=== PATIENT | female | born 1985 | race Two or more races ===

== ENCOUNTER 2017-09-26 20:44 | Emergency (ER) | payer SELFPAY ==
[~2017-09-26] VITALS: Ht 132.1 cm; Wt 44.5 kg
[2017-09-26] MEDS ORDERED: KETOROLAC 30 MG/ML INJ. IV ONE (21:30)
--- NOTE | 2017-09-26 21:41 | PHYS DOC ---
Past Medical History Past Medical History: No Pertinent History Past Surgical History: No Surgical History Alcohol Use: None Drug Use: None Adult General Chief Complaint Chief Complaint: ABDOMINAL PAIN HPI HPI 32-year-old female with no significant past abdominal history now presents the emergency department complaining of left-sided abdominal pain with nausea and left flank pain for the last 2 days. She denies fevers chills sweats or shaking chills. Patient feels like she may be constipated as she has not had a good bowel movement in the last couple days. No black or bloody stool. No history of chronic abdominal problems. Patient denies being . Normal bladder habits. Pain is mildly worse with movement. She reports having had a kidney infection in the distant past. Review of Systems Review of Systems Constitutional: Denies fever or chills [] Eyes: Denies change in visual acuity, redness, or eye pain [] HENT: Denies nasal congestion or sore throat [] Respiratory: Denies cough or shortness of breath [] Cardiovascular: No additional information not addressed in HPI [] GI: Denies abdominal pain, nausea, vomiting, bloody stools or diarrhea [] : Denies dysuria or hematuria [] Musculoskeletal: Denies back pain or joint pain [] Integument: Denies rash or skin lesions [] Neurologic: Denies headache, focal weakness or sensory changes [] Endocrine: Denies polyuria or polydipsia [] All other systems were reviewed and found to be within normal limits, except as documented in this note. Current Medications Current Medications Current Medications Medications (Trade) Dose Ordered Sig/Alvaro Start Time Stop Time Status Last Admin Dose Admin Info (Do NOT chart on this entry -- for MONITORING) 1 each PRN DAILY PRN 09/26/17 22:00 09/28/17 21:59 Iohexol (Omnipaque 300 Mg/ml) 75 ml 1X ONCE 09/26/17 22:00 09/26/17 22:01 DC 09/26/17 22:24 75 ML Ketorolac Tromethamine (Toradol) 30 mg 1X ONCE 09/26/17 21:30 09/26/17 21:47 DC 09/26/17 21:53 30 MG Allergies Allergies Allergies Coded Allergies Type Severity Reaction Last Updated Verified acetaminophen Allergy Intermediate hives, itching 09/26/17 Yes Physical Exam Physical Exam Alert well-appearing 32-year-old female in no acute distress alert communicative cooperative and appropriate. Clear lungs regular and rhythm. Moist mucous membranes supple neck. No tachycardia. Mild left CVA tenderness. Minimal left upper quadrant abdominal tenderness without guarding or rebound no mass or megaly. Nondistended abdomen normal bowel sounds no skin changes. Normal extremities Constitutional: Well developed, well nourished, no acute distress, non-toxic appearance. [] HENT: Normocephalic, atraumatic, bilateral external ears normal, oropharynx moist, no oral exudates, nose normal. [] Eyes: PERRLA, EOMI, conjunctiva normal, no discharge. [] Neck: Normal range of motion, no tenderness, supple, no stridor. [] Cardiovascular:Heart rate regular rhythm, no murmur [] Lungs & Thorax: Bilateral breath sounds clear to auscultation [] Abdomen: Bowel sounds normal, soft, as above, no masses, no pulsatile masses. [ ] Skin: Warm, dry, no erythema, no rash. [] Back: No tenderness, no CVA tenderness. [] Extremities: No tenderness, no cyanosis, no clubbing, ROM intact, no edema. [] Neurologic: Alert and oriented X 3, normal motor function, normal sensory function, no focal deficits noted. [] Psychologic: Affect normal, judgement normal, mood normal. [] Current Patient Data Vital Signs Vital Signs Date Time Temp Pulse Resp B/P (MAP) Pulse Ox O2 Delivery O2 Flow Rate FiO2 09/26/17 22:48 76 16 96/62 (73) 99 Room Air 09/26/17 20:50 98.2 98.2 Lab Values Laboratory Tests Test 09/26/17 20:57 09/26/17 21:30 09/26/17 21:43 POC Urine HCG, Qualitative Hcg negative (Negative) Urine Collection Type Unknown Urine Color Yellow Urine Clarity Clear Urine pH 6.0 Urine Specific [place] <=1.005 Urine Protein Negative mg/dL (NEG-TRACE) Urine Glucose (UA) Negative mg/dL (NEG) Urine Ketones (Stick) Negative mg/dL (NEG) Urine Blood Negative (NEG) Urine Nitrite Negative (NEG) Urine Bilirubin Negative (NEG) Urine Urobilinogen Dipstick 0.2 mg/dL (0.2 mg/dL) Urine Leukocyte Esterase Negative (NEG) Urine RBC 0 /HPF (0-2) Urine WBC 0 /HPF (0-4) Urine Squamous Epithelial Cells Occ /LPF Urine Bacteria 0 /HPF (0-FEW) White Blood Count 6.5 x10^3/uL (4.0-11.0) Red Blood Count 4.51 x10^6/uL (3.50-5.40) Hemoglobin 13.8 g/dL (12.0-15.5) Hematocrit 41.1 % (36.0-47.0) Mean Corpuscular Volume 91 fL (79-100) Mean Corpuscular Hemoglobin 31 pg (25-35) Mean Corpuscular Hemoglobin Concent 34 g/dL (31-37) Red Cell Distribution Width 12.7 % (11.5-14.5) Platelet Count 258 x10^3/uL (140-400) Neutrophils (%) (Auto) 47 % (31-73) Lymphocytes (%) (Auto) 35 % (24-48) Monocytes (%) (Auto) 11 % (0-9) H Eosinophils (%) (Auto) 6 % (0-3) H Basophils (%) (Auto) 1 % (0-3) Neutrophils # (Auto) 3.1 x10^3uL (1.8-7.7) Lymphocytes # (Auto) 2.3 x10^3/uL (1.0-4.8) Monocytes # (Auto) 0.7 x10^3/uL (0.0-1.1) Eosinophils # (Auto) 0.4 x10^3/uL (0.0-0.7) Basophils # (Auto) 0.0 x10^3/uL (0.0-0.2) Sodium Level 139 mmol/L (136-145) Potassium Level 3.8 mmol/L (3.5-5.1) Chloride Level 103 mmol/L (98-107) Carbon Dioxide Level 27 mmol/L (21-32) Anion Gap 9 (6-14) Blood Urea Nitrogen 7 mg/dL (7-20) Creatinine 0.8 mg/dL (0.6-1.0) Estimated GFR (Cockcroft-Gault) 84.2 BUN/Creatinine Ratio 9 (6-20) Glucose Level 108 mg/dL (70-99) H Calcium Level 8.5 mg/dL (8.5-10.1) Total Bilirubin 0.2 mg/dL (0.2-1.0) Aspartate Amino Transferase (AST) 22 U/L (15-37) Alanine Aminotransferase (ALT) 27 U/L (14-59) Alkaline Phosphatase 62 U/L (46-116) Total Protein 7.1 g/dL (6.4-8.2) Albumin 3.5 g/dL (3.4-5.0) Albumin/Globulin Ratio 1.0 (1.0-1.7) Lipase 149 U/L (73-393) Laboratory Tests 09/26/17 21:43 Laboratory Tests 09/26/17 21:43 EKG EKG [] Radiology/Procedures Radiology/Procedures [] Course & Med Decision Making Course & Med Decision Making Pertinent Labs and Imaging studies reviewed. (See chart for details) Signs and symptoms consistent with possible pyelonephritis versus GI etiology for pain and full workup pending putting labs UA urine hCG and CT. Toradol administered. Patient appears well-hydrated with unremarkable vital signs. Follow clinically and correlate with laboratory and radiological results. She is workup completely benign. Incidental finding of distended stomach however is not clinically relevant as patient has a nondistended epigastrium with no tenderness and no nausea or vomiting. Additional incidental finding of complex right ovarian cyst. Patient stable. No further workup or treatment indicated. Patient given copy of CT result to discuss with her primary care doctor and arrange further follow-up and treatment as needed. She agrees with outpatient follow-up and strict return precautions given [] Alineon Disclaimer Dragon Disclaimer This electronic medical record was generated, in whole or in part, using a voice recognition dictation system. Departure Departure Impression: Primary Impression: Left flank pain Additional Impressions: Abdominal pain Complex cyst of right ovary Gastric distention Disposition: HOME, SELF-CARE Condition: IMPROVED Referrals: NO PCP (PCP) Patient Instructions: Abdominal Pain (Nonspecific), Ovarian Cyst Additional Instructions: It is not clear what was causing her abdominal pain this evening. You feel that you're constipated CU may find it helpful to eat a high-fiber diet. Use over-the -counter MiraLAX as needed and consider homeopathic remedies such as prune juice. You have an incidental finding of a complex right ovarian cyst. Follow- up with your doctor for reevaluation and further workup and treatment as needed. See your doctor tomorrow and return immediately for new severe or worsening symptoms Problem Qualifiers ANNE GOODMAN MD Sep 26, 2017 21:40
[2017-09-26 21:43] LABS: BILIRUBIN,URINE NEGATIVE (NEG); GLUCOSE,URINE NEGATIVE (NEG); NITRITE,URINE NEGATIVE (NEG); PROTEIN,URINE NEGATIVE (NEG-TRACE); UROBILINOGEN,URINE 0.2 mg/dL (0.2 mg/dL)
[2017-09-26 21:49] LABS: BACTERIA,URINE 0 /HPF (0-FEW); RBC,URINE 0 /HPF (0-2); SQUAMOUS EPITHELIAL CELL,UR OCC /LPF; WBC,URINE 0 /HPF (0-4)
[2017-09-26 21:49] LABS: BASO % 1 % (0-3); EOS % 6 % (0-3); HEMATOCRIT 41.1 % (36.0-47.0); HEMOGLOBIN 13.8 g/dL (12.0-15.5); LYMPH # 2.3 x10^3/uL (1.0-4.8); LYMPH % 35 % (24-48); MEAN CORPUSCULAR HEMOGLOBIN 31 pg (25-35); MEAN CORPUSCULAR HGB CONC 34 g/dL (31-37); MEAN CORPUSCULAR VOLUME 91 fL (79-100); MONO % 11 % (0-9); NEUT % 47 % (31-73); PLATELET COUNT 258 x10^3/uL (140-400); RED BLOOD COUNT 4.51 x10^6/uL (3.50-5.40); RED CELL DISTRIBUTION WIDTH 12.7 % (11.5-14.5); WHITE BLOOD COUNT 6.5 x10^3/uL (4.0-11.0)
[2017-09-26] MEDS ORDERED: IOHEXOL 300 MG/ML 100ML VIAL. IV ONE (22:00)
[2017-09-26] MEDS ORDERED: CONTRAST GIVEN MC PRN (22:00)
[2017-09-26 22:05] LABS: CALCIUM 8.5 mg/dL (8.5-10.1); CREATININE 0.8 mg/dL (0.6-1.0); GFR 84.2; POTASSIUM 3.8 mmol/L (3.5-5.1)
[2017-09-26 22:10] LABS: ALBUMIN 3.5 g/dL (3.4-5.0); TOTAL BILIRUBIN 0.2 mg/dL (0.2-1.0); TOTAL PROTEIN 7.1 g/dL (6.4-8.2)
--- NOTE | 2017-09-26 22:38 | RAD ---
CT ABD PELV W/ IV CONTRST ONLY dated 09/26/2017 9:23 PM Indication: Left lower quadrant pain, left flank painllq and left flank pain, constipation x 3 days, [id number] 75ml, no priors. Comparison: No comparison is available. Technique: Contiguous axial imaging of the abdomen and pelvis performed after the administration of 75 cc Omnipaque 300. One or more of the following individualized dose reduction techniques were utilized for this examination: 1. Automated exposure control 2. Adjustment of the mA and/or kV according to patient size 3. Use of iterative reconstruction technique Findings: Limited images of lung bases are clear. Heart size within normal limits. No pleural or pericardial effusion. Liver, spleen, pancreas, adrenal glands, gallbladder and kidneys are unremarkable. Tiny low-density focus at the posterior midpole right kidney likely represents cyst. No hydronephrosis. The stomach is dilated and filled with debris. GI tract is otherwise normal in caliber and contour. No focal bowel wall thickening. No inflammatory stranding in the mesentery. The appendix is normal in caliber. No ascites or lymphadenopathy. Images of pelvis show mildly distended urinary bladder. Uterus and adnexa are unremarkable. Possible complex right ovarian cyst measuring 1.8 cm in size. Trace amount of free pelvic fluid. No pelvic lymphadenopathy. Bone windows show no acute findings. Suspect unilateral pars defect at L5-S1 on the left. IMPRESSION: 1. No acute abnormality of abdomen or pelvis. Normal appendix. 2. Small complex right ovarian cyst with trace amount of free pelvic fluid. 3. Dilated debris-filled stomach. Electronically signed by: Sourav Mares MD (09/26/2017 10:35 PM) [facility]
[2017-09-27] VITALS: BP 92/51
== END 2017-09-27 00:26 | disposition home or self-care (01) ==
LOC: ER 20:44
DX: N83.201 Unspecified ovarian cyst, right side (principal); R14.0 Abdominal distension (gaseous); Z88.6 Allergy status to analgesic agent
CPT/HCPCS: 36415; 74177; 80053; 81001; 81025; 83690; 85025; 96374; 99285; J1885; Q9967

== ENCOUNTER 2019-06-07 14:15 | Emergency (ER) | payer SELFPAY ==
[~2019-06-07] VITALS: Ht 160 cm; Wt 47.2 kg
[2019-06-07 14:20] VITALS: BP 108/58
[2019-06-07 14:39] LABS: BILIRUBIN,URINE NEGATIVE (NEG); CLARITY,URINE CLOUDY; COLOR,URINE YELLOW; NITRITE,URINE NEGATIVE (NEG); PH,URINE 8.5; PROTEIN,URINE NEGATIVE (NEG-TRACE); UROBILINOGEN,URINE 0.2 mg/dL (0.2 mg/dL)
[2019-06-07 14:44] LABS: AMORPHOUS SEDIMENT,UR PRESENT /HPF; BACTERIA,URINE 0 /HPF (0-FEW); RBC,URINE 0 /HPF (0-2); SQUAMOUS EPITHELIAL CELL,UR MOD /LPF; WBC,URINE 0 /HPF (0-4)
--- NOTE | 2019-06-07 14:45 | PHYS DOC ---
Past Medical History Past Medical History: No Pertinent History Past Surgical History: No Surgical History Alcohol Use: None Drug Use: None Adult General Chief Complaint Chief Complaint: VAGINAL BLEEDING [facility] HPI Patient is a 33 year old female, accompanied by her family, with complaints of some dark brown vaginal discharge at approximately 12 AM and pelvic pain. Patient states she is currently with a last menstrual period of March 31, 2019. She is 4, para 2, A1. Her surgical history includes 3 previous C-sections; she denies any medical history. Patient currently rates her pain a 5 out of 10 on the pain scale, there are no alleviating, or exacerbating factors. ROS Patient denies any blood clots or heavy bleeding. She reports she has had some pelvic cramping and low back pain. She states that she has burning with urination, she denies any hematuria, incontinence, or foul-smelling urine. Patient reports having chills, and fatigue. She denies any fever, nausea, vomiting, diarrhea, shortness of breath, or cough. All other ROS is neg unless otherwise noted in HPI. Review of Systems Review of Systems SEE ABOVE Current Medications Current Medications Current Medications Medications (Trade) Dose Ordered Sig/Alvaro Start Time Stop Time Status Last Admin Dose Admin Lidocaine HCl (Xylocaine-Mpf 1% 2ml Vial) 4 ml 1X ONCE 06/07/19 18:00 06/07/19 18:01 UNV Allergies Allergies Allergies Coded Allergies Type Severity Reaction Last Updated Verified acetaminophen Allergy Intermediate hives, itching 09/26/17 Yes Physical Exam Physical Exam SEE ABOVE Constitutional: Well developed, well nourished, no acute distress, non-toxic appearance. [] HENT: Normocephalic, atraumatic, bilateral external ears normal, nose normal. [] Eyes: PERRLA, conjunctiva normal, no discharge. [] Neck: Normal range of motion, no stridor. [] Cardiovascular:Heart rate regular rhythm, no murmur [] Lungs & Thorax: Bilateral breath sounds clear to auscultation [] Abdomen: Bowel sounds normal, soft, suprapubic tenderness, no guarding, no rebound tenderness, no masses, no pulsatile masses. [] Skin: Warm, dry, no erythema, no rash. [] Back: No CVA tenderness. [] Extremities: No cyanosis, ROM intact Neurologic: Alert and oriented X 3, no focal deficits noted. [] Psychologic: Affect normal, judgement normal, mood normal. [] Current Patient Data Vital Signs Vital Signs Date Time Temp Pulse Resp B/P (MAP) Pulse Ox O2 Delivery O2 Flow Rate FiO2 06/07/19 14:20 98.1 68 16 108/58 (75) 99 Room Air 98.1 Lab Values Laboratory Tests Test 06/07/19 14:20 06/07/19 15:15 Urine Collection Type Unknown Urine Color Yellow Urine Clarity Cloudy Urine pH 8.5 Urine Specific [place] 1.015 Urine Protein Negative mg/dL (NEG-TRACE) Urine Glucose (UA) Negative mg/dL (NEG) Urine Ketones (Stick) Negative mg/dL (NEG) Urine Blood Negative (NEG) Urine Nitrite Negative (NEG) Urine Bilirubin Negative (NEG) Urine Urobilinogen Dipstick 0.2 mg/dL (0.2 mg/dL) Urine Leukocyte Esterase Negative (NEG) Urine RBC 0 /HPF (0-2) Urine WBC 0 /HPF (0-4) Urine Squamous Epithelial Cells Mod /LPF Urine Amorphous Sediment Present /HPF Urine Bacteria 0 /HPF (0-FEW) White Blood Count 8.0 x10^3/uL (4.0-11.0) Red Blood Count 4.22 x10^6/uL (3.50-5.40) Hemoglobin 13.1 g/dL (12.0-15.5) Hematocrit 38.0 % (36.0-47.0) Mean Corpuscular Volume 90 fL (79-100) Mean Corpuscular Hemoglobin 31 pg (25-35) Mean Corpuscular Hemoglobin Concent 34 g/dL (31-37) Red Cell Distribution Width 12.8 % (11.5-14.5) Platelet Count 287 x10^3/uL (140-400) Neutrophils (%) (Auto) 61 % (31-73) Lymphocytes (%) (Auto) 28 % (24-48) Monocytes (%) (Auto) 8 % (0-9) Eosinophils (%) (Auto) 2 % (0-3) Basophils (%) (Auto) 1 % (0-3) Neutrophils # (Auto) 4.9 x10^3/uL (1.8-7.7) Lymphocytes # (Auto) 2.3 x10^3/uL (1.0-4.8) Monocytes # (Auto) 0.6 x10^3/uL (0.0-1.1) Eosinophils # (Auto) 0.2 x10^3/uL (0.0-0.7) Basophils # (Auto) 0.1 x10^3/uL (0.0-0.2) Maternal Serum HCG Beta Subunit 9580 mIU/mL (0-5) H Laboratory Tests 06/07/19 15:15 EKG EKG [] Radiology/Procedures Radiology/Procedures PROCEDURE: OB <14 WKS W/TV Obstetrical ultrasound less than 14 weeks transabdominal and transvaginal imaging. HISTORY: Vaginal bleeding, first trimester Transabdominal ultrasound was performed. The uterus is retroflexed. There is a gestational sac in the fundus of the uterus. Left ovary was normal in appearance. Right ovary was normal in appearance. Transvaginal imaging was performed for further evaluation. There is a gestational sac with a mean gestational sac size of 1.7 cm corresponding to 6 weeks 4 days gestational age. Cervix was 2.4 cm in length. A normal yolk sac was not identified. There is a small amount of tissue within the gestational sac without a heartbeat. Gestational sac is mildly irregular. There is a concern about demise. A follow-up study would be recommended. IMPRESSION: 1. Irregular gestational sac with a mean sac size of 1.6 cm corresponding to 6 weeks 4 days gestational age. 2. A normal yolk sac and pole were not identified, there is a small amount of tissue within the gestational sac without a heartbeat. 3. The pattern is concerning for demise. Follow-up may be of benefit or correlation with hCGs.[] Course & Med Decision Making Course & Med Decision Making Pertinent Labs and Imaging studies reviewed. (See chart for details) dx: Threatened miscarriage in early , vaginal bleeding in early CBC unremarkable, UA unremarkable, maternal hCG is 9580 blood type is A+ U/S was concerning for an irregular gestational sac corresponding to 6 weeks and 4 days gestational age, however a normal yolk sac and pole were not identified, there was no heartbeat presents which is concerning for demise. 1715- Spoke with Dr. Tinajero will have patient follow-up in office Sunday to repeat beta hCG. Patient verbalized an understanding of home care, medications, follow-up, and return to ED instructions and was in agreement with the plan of care. [] Dragon Disclaimer Dragon Disclaimer This electronic medical record was generated, in whole or in part, using a voice recognition dictation system. Departure Departure Impression: Primary Impression: Threatened miscarriage in early Additional Impression: Vaginal bleeding affecting early Disposition: HOME, SELF-CARE Condition: STABLE Referrals: ALEX TINAJREO MD Patient Instructions: Threatened Miscarriage, [id number] Additional Instructions: We cannot exclude an ectopic . You MUST Follow up with Dr. Tinajero on Sunday to have your HCG level redrawn today your level was 9580. Return to the ER sooner if your symptoms worsen or you are unable to schedule an appointment with Dr. Tinajero. Problem Qualifiers DANE MADERA MAMMOGRAPHY TECHNICIAN Jun 07, 2019 14:45
[2019-06-07 15:27] LABS: BASO # 0.1 x10^3/uL (0.0-0.2); BASO % 1 % (0-3); EOS # 0.2 x10^3/uL (0.0-0.7); EOS % 2 % (0-3); HEMOGLOBIN 13.1 g/dL (12.0-15.5); LYMPH # 2.3 x10^3/uL (1.0-4.8); LYMPH % 28 % (24-48); MEAN CORPUSCULAR HEMOGLOBIN 31 pg (25-35); MEAN CORPUSCULAR HGB CONC 34 g/dL (31-37); MEAN CORPUSCULAR VOLUME 90 fL (79-100); MONO # 0.6 x10^3/uL (0.0-1.1); MONO % 8 % (0-9); NEUT # 4.9 x10^3/uL (1.8-7.7); NEUT % 61 % (31-73); PLATELET COUNT 287 x10^3/uL (140-400); RED BLOOD COUNT 4.22 x10^6/uL (3.50-5.40); RED CELL DISTRIBUTION WIDTH 12.8 % (11.5-14.5)
[2019-06-07] MEDS ORDERED: LIDOCAINE 1% PF 2 ML VIAL. INJ ONE (18:00)
--- NOTE | 2019-06-07 18:22 | RAD ---
Obstetrical ultrasound less than 14 weeks transabdominal and transvaginal imaging. HISTORY: Vaginal bleeding, first trimester Transabdominal ultrasound was performed. The uterus is retroflexed. There is a gestational sac in the fundus of the uterus. Left ovary was normal in appearance. Right ovary was normal in appearance. Transvaginal imaging was performed for further evaluation. There is a gestational sac with a mean gestational sac size of 1.7 cm corresponding to 6 weeks 4 days gestational age. Cervix was 2.4 cm in length. A normal yolk sac was not identified. There is a small amount of tissue within the gestational sac without a heartbeat. Gestational sac is mildly irregular. There is a concern about demise. A follow-up study would be recommended. IMPRESSION: 1. Irregular gestational sac with a mean sac size of 1.6 cm corresponding to 6 weeks 4 days gestational age. 2. A normal yolk sac and pole were not identified, there is a small amount of tissue within the gestational sac without a heartbeat. 3. The pattern is concerning for demise. Follow-up may be of benefit or correlation with hCGs. Electronically signed by: Navid Mcintyre MD (06/07/2019 6:19 PM) [facility]
== END 2019-06-07 19:01 | disposition home or self-care (01) ==
LOC: ER 14:15
DX: O20.0 Threatened abortion (principal); R10.32 Left lower quadrant pain; M54.5 Low back pain; Z3A.01 Less than 8 weeks gestation of pregnancy
CPT/HCPCS: 36415; 76801; 76817; 81001; 81025; 84702; 85025; 86900; 86901; 99285-25

== ENCOUNTER 2019-06-09 15:04 | Emergency (ER) | payer SELFPAY ==
[~2019-06-09] VITALS: Ht 157.5 cm; Wt 47.2 kg
[2019-06-09 17:42] LABS: BASO # 0.1 x10^3/uL (0.0-0.2); BASO % 1 % (0-3); EOS # 0.3 x10^3/uL (0.0-0.7); EOS % 3 % (0-3); HEMATOCRIT 38.9 % (36.0-47.0); HEMOGLOBIN 13.2 g/dL (12.0-15.5); LYMPH # 2.9 x10^3/uL (1.0-4.8); LYMPH % 30 % (24-48); MEAN CORPUSCULAR HEMOGLOBIN 31 pg (25-35); MEAN CORPUSCULAR HGB CONC 34 g/dL (31-37); MEAN CORPUSCULAR VOLUME 91 fL (79-100); MONO # 0.6 x10^3/uL (0.0-1.1); MONO % 6 % (0-9); NEUT # 5.9 x10^3/uL (1.8-7.7); NEUT % 60 % (31-73); PLATELET COUNT 281 x10^3/uL (140-400); RED BLOOD COUNT 4.29 x10^6/uL (3.50-5.40); RED CELL DISTRIBUTION WIDTH 12.7 % (11.5-14.5); WHITE BLOOD COUNT 9.7 x10^3/uL (4.0-11.0)
[2019-06-09 17:44] LABS: BILIRUBIN,URINE NEGATIVE (NEG); CLARITY,URINE CLEAR; COLOR,URINE YELLOW; NITRITE,URINE NEGATIVE (NEG); PROTEIN,URINE NEGATIVE (NEG-TRACE)
[2019-06-09] MEDS ORDERED: IV NORMAL SALINE 1000ML BAG 1,000 ML IV ONE (17:45)
[2019-06-09 17:51] LABS: CALCIUM 8.6 mg/dL (8.5-10.1); CREATININE 0.8 mg/dL (0.6-1.0); GFR 83.7; POTASSIUM 3.7 mmol/L (3.5-5.1)
[2019-06-09 17:58] LABS: ALBUMIN 3.9 g/dL (3.4-5.0); ALBUMIN/GLOBULIN RATIO 1.1 (1.0-1.7); TOTAL BILIRUBIN 0.3 mg/dL (0.2-1.0); TOTAL PROTEIN 7.6 g/dL (6.4-8.2)
[2019-06-09] MEDS ORDERED: MORPHINE SULFATE 10 MG/ML VIAL. IV ONE (18:00)
[2019-06-09 18:02] LABS: BACTERIA,URINE FEW /HPF (0-FEW); SQUAMOUS EPITHELIAL CELL,UR FEW /LPF
--- NOTE | 2019-06-09 18:46 | RAD ---
Exam: Ultrasound OB ultrasound transvaginal Indication: Worsening pain and vaginal bleeding Technique: Real-time grayscale and color Doppler images of the pelvis were obtained by the department ticket scheduler. Transvaginal images were obtained. Comparisons: Ultrasound 06/07/2019 FINDINGS: Uterus is retroverted measuring 8.6 x 6.1 x 4.6 cm. Within the uterus there is a gestational sac and pole measuring 4 mm. No heart rate is identified. Right ovary measures 1.9 x 1.2 x 1.9 cm. Left ovary measures 2.4 x 2.2 x 1.3 cm. IMPRESSION: Redemonstration of gestational sac and pole within the uterus. No heart activity is identified. Differential considerations include failed versus early . Recommend correlation with serial beta hCGs and short-term imaging follow-up in 10-14 days. Electronically signed by: Tyrell Hdez MD (06/09/2019 6:43 PM) [facility]
--- NOTE | 2019-06-09 20:42 | PHYS DOC ---
Past Medical History Past Medical History: No Pertinent History (KEV DONG APRN) Past Surgical History: No Surgical History (KEV DONG APRN) Alcohol Use: None Drug Use: None (KEV DONG APRN) Adult General Chief Complaint Chief Complaint: VAGINAL BLEEDING [facility] HPI Patient is a 33 year old female 4 para 2, 1 who presents to the ED today with vaginal bleeding in . Patient states she is roughly 6 weeks last menstrual cycle being April 08, 2019. She states she started experiencing abdominal pain described as cramping rated at 8 out of 10 mostly on the pelvic region that begun 3 days ago. She states she was seen in the ED and they did an ultrasound which showed demise. She states she was discharged to home. She states the bleeding has increased in intensity. She has used 3 feminine pads today. Patient denies any nausea or vomiting. Denies any fever. Denies any concerns for STDs. [employer] line was used for [place], the daughter also helped interpret. (KEV DONG APRN) Review of Systems Review of Systems Constitutional: Denies fever or chills [] Eyes: Denies change in visual acuity, redness, or eye pain [] HENT: Denies nasal congestion or sore throat [] Respiratory: Denies cough or shortness of breath [] Cardiovascular: No additional information not addressed in [facility] [] GI: Reports vaginal bleeding, abdominal pain in , denies nausea, vomiting, bloody stools or diarrhea [] : Denies dysuria or hematuria [] Musculoskeletal: Denies back pain or joint pain [] Integument: Denies rash or skin lesions [] Neurologic: Denies headache, focal weakness or sensory changes [] All other systems were reviewed and found to be within normal limits, except as documented in this note. (KEV DONG APRN) Current Medications Current Medications Current Medications Medications (Trade) Dose Ordered Sig/Alvaro Start Time Stop Time Status Last Admin Dose Admin Morphine Sulfate (Morphine Sulfate) 5 mg 1X ONCE 06/09/19 18:00 06/09/19 18:01 DC 06/09/19 18:05 5 MG Sodium Chloride 1,000 ml @ 1,000 mls/hr 1X ONCE 06/09/19 17:45 06/09/19 18:44 DC 06/09/19 18:05 1,000 MLS/HR (ANNE PIZANO DO) Allergies Allergies Allergies Coded Allergies Type Severity Reaction Last Updated Verified acetaminophen Allergy Intermediate hives, itching 09/26/17 Yes (ANNE PIZANO DO) Physical Exam Physical Exam Constitutional: Well developed, well nourished, no acute distress, non-toxic appearance. [] HENT: Normocephalic, atraumatic, bilateral external ears normal, oropharynx moist, no oral exudates, nose normal. [] Eyes: PERRLA, EOMI, conjunctiva normal, no discharge. [] Neck: Normal range of motion, no tenderness, supple, no stridor. [] Cardiovascular:Heart rate regular rhythm, no murmur [] Lungs & Thorax: Bilateral breath sounds clear to auscultation [] Abdomen: Bowel sounds normal, soft, no tenderness, no masses, no pulsatile masses. [] Pelvic exam External pelvic appears normal, cervix is visualized, small amount of blood in the cervical os. No CMT, no adnexal tenderness. Skin: Warm, dry, no erythema, no rash. [] Back: No tenderness, no CVA tenderness. [] Extremities: No tenderness, no cyanosis, no clubbing, ROM intact, no edema. [] Neurologic: Alert and oriented X 3, normal motor function, normal sensory function, no focal deficits noted. [] Psychologic: Affect normal, judgement normal, mood normal. [] (KEV DONG APRN) Current Patient Data Vital Signs Vital Signs Date Time Temp Pulse Resp B/P (MAP) Pulse Ox O2 Delivery O2 Flow Rate FiO2 06/09/19 21:00 65 15 101/62 (75) 98 Room Air 06/09/19 16:07 98.5 98.5 (ANNE PIZANO DO) Lab Values Laboratory Tests Test 06/09/19 17:05 06/09/19 17:11 06/09/19 17:30 Urine Collection Type Void Urine Color Yellow Urine Clarity Clear Urine pH 7.0 Urine Specific [place] 1.020 Urine Protein Negative mg/dL (NEG-TRACE) Urine Glucose (UA) Negative mg/dL (NEG) Urine Ketones (Stick) Negative mg/dL (NEG) Urine Blood Large (NEG) Urine Nitrite Negative (NEG) Urine Bilirubin Negative (NEG) Urine Urobilinogen Dipstick 1.0 mg/dL (0.2 mg/dL) Urine Leukocyte Esterase Negative (NEG) Urine RBC 11-20 /HPF (0-2) Urine WBC 1-4 /HPF (0-4) Urine Squamous Epithelial Cells Few /LPF Urine Bacteria Few /HPF (0-FEW) POC Urine HCG, Qualitative Hcg positive (Negative) White Blood Count 9.7 x10^3/uL (4.0-11.0) Red Blood Count 4.29 x10^6/uL (3.50-5.40) Hemoglobin 13.2 g/dL (12.0-15.5) Hematocrit 38.9 % (36.0-47.0) Mean Corpuscular Volume 91 fL (79-100) Mean Corpuscular Hemoglobin 31 pg (25-35) Mean Corpuscular Hemoglobin Concent 34 g/dL (31-37) Red Cell Distribution Width 12.7 % (11.5-14.5) Platelet Count 281 x10^3/uL (140-400) Neutrophils (%) (Auto) 60 % (31-73) Lymphocytes (%) (Auto) 30 % (24-48) Monocytes (%) (Auto) 6 % (0-9) Eosinophils (%) (Auto) 3 % (0-3) Basophils (%) (Auto) 1 % (0-3) Neutrophils # (Auto) 5.9 x10^3/uL (1.8-7.7) Lymphocytes # (Auto) 2.9 x10^3/uL (1.0-4.8) Monocytes # (Auto) 0.6 x10^3/uL (0.0-1.1) Eosinophils # (Auto) 0.3 x10^3/uL (0.0-0.7) Basophils # (Auto) 0.1 x10^3/uL (0.0-0.2) Maternal Serum HCG Beta Subunit 7876 mIU/mL (0-5) H Sodium Level 141 mmol/L (136-145) Potassium Level 3.7 mmol/L (3.5-5.1) Chloride Level 105 mmol/L (98-107) Carbon Dioxide Level 25 mmol/L (21-32) Anion Gap 11 (6-14) Blood Urea Nitrogen 15 mg/dL (7-20) Creatinine 0.8 mg/dL (0.6-1.0) Estimated GFR (Cockcroft-Gault) 83.7 BUN/Creatinine Ratio 19 (6-20) Glucose Level 97 mg/dL (70-99) Calcium Level 8.6 mg/dL (8.5-10.1) Total Bilirubin 0.3 mg/dL (0.2-1.0) Aspartate Amino Transferase (AST) 14 U/L (15-37) L Alanine Aminotransferase (ALT) 17 U/L (14-59) Alkaline Phosphatase 52 U/L (46-116) Total Protein 7.6 g/dL (6.4-8.2) Albumin 3.9 g/dL (3.4-5.0) Albumin/Globulin Ratio 1.1 (1.0-1.7) Laboratory Tests 06/09/19 17:30 Laboratory Tests 06/09/19 17:30 (ANNE PIZANO DO) EKG EKG [] (KEV DONG APRN) Radiology/Procedures Radiology/Procedures []PROCEDURE: OB TRANSVAG Exam: Ultrasound OB ultrasound transvaginal Indication: Worsening pain and vaginal bleeding Technique: Real-time grayscale and color Doppler images of the pelvis were obtained by the department varnisher plasticoater. Transvaginal images were obtained. Comparisons: Ultrasound 06/07/2019 FINDINGS: Uterus is retroverted measuring 8.6 x 6.1 x 4.6 cm. Within the uterus there is a gestational sac and pole measuring 4 mm. No heart rate is identified. Right ovary measures 1.9 x 1.2 x 1.9 cm. Left ovary measures 2.4 x 2.2 x 1.3 cm. IMPRESSION: Redemonstration of gestational sac and pole within the uterus. No heart activity is identified. Differential considerations include failed versus early . Recommend correlation with serial beta hCGs and short-term imaging follow-up in 10-14 days. Electronically signed by: Tyrell Herrera MD (06/09/2019 6:43 PM) [facility] DICTATED and SIGNED BY: TYRELL HERRERA MD DATE: 06/09/19 184 (KEV DONG APRN) Course & Med Decision Making Course & Med Decision Making Pertinent Labs and Imaging studies reviewed. (See chart for details) This is a 33-year-old female patient 4 para 21 who presents to the ED today with vaginal bleeding and abdominal pain in that began 3 days ago. She was seen in the ED for the same complaint 3 days ago, had demise. She returns today with vaginal bleeding and abdominal pain. CBC with a normal WBC, normal hemoglobin and hematocrit, CMP-no acute findings. Beta-hCG 7876 down from 9580, 2 days ago. OB ultrasound -Redemonstration of gestational sac and pole within the u terus. No heart activity is identified. Differential considerations include failed versus early . Recommend correlation with serial beta hCGs and short-term imaging follow-up in 10-14 days. The above results were communicated to patient using the piercing mill operator line for [place]ese. She was instructed to maintain bedrest. She was provided instructions to follow-up with her own FACILITY MANAGER, she states she has an appointment tomorrow. I requested a to ask them to look at her beta-hCG when she is seen tomorrow and see if it's trending down. She is provided return precautions and discharged in stable condition. (KEV DONG APRN) Dragon Disclaimer Dragon Disclaimer This electronic medical record was generated, in whole or in part, using a voice recognition dictation system. (KEV DONG APRN) Departure Departure Impression: Primary Impression: Threatened miscarriage in early Disposition: 01 HOME, SELF-CARE Condition: STABLE Referrals: NO PCP (PCP) Follow-up with your doctor tomorrow Patient Instructions: Threatened Miscarriage, [id number] Additional Instructions: You were evaluated in the emergency room for abdominal pain in with bleeding. Your OB ultrasound was noted for gestational sac and pole within the uterus. No heart activity is identified. Differential considerations include failed versus early . Recommend correlation with serial beta hCGs and short-term imaging follow-up in 10-14 days. Your beta-hCG today was 9850 this is down from 7876 down 2 days ago. Please follow-up with your doctor tomorrow and have them recheck this number. Please take Tylenol as needed for pain. Come back to the ED at any point symptoms worsen. Please maintain bed rest, no strenuous or heavy activity, no sex. Attending Signature Attending Signature I have reviewed the PA/LOSS CLAIM CLERK's note and plan of care. I was available for consultation as needed during the patient's visit in the emergency department. I agree with the clinical impression, plan, and disposition. (ANNE PIZANO DO) RAYAnastasiaKEV APRN Jun 09, 2019 20:42 ANNE PIZANO DO Jun 10, 2019 04:53
[2019-06-09 21:00] VITALS: BP 101/62
== END 2019-06-09 21:23 | disposition home or self-care (01) ==
LOC: ER 15:04
DX: O20.0 Threatened abortion (principal); Z88.6 Allergy status to analgesic agent; Z3A.01 Less than 8 weeks gestation of pregnancy
CPT/HCPCS: 36415; 76817; 80053; 81001; 81025; 84702; 85025; 96374; 99285; J2270; J7030